=== PATIENT | female | born 1970 | race Caucasian/White ===

== ENCOUNTER → 2021-08-04 | Outpatient (CLI) | payer OTHER | LOC: RAD 14:00 | PROVIDERS: ATTEND Family Medicine | DX: Z12.31 Encounter for screening mammogram for malignant neoplasm of breast (principal) | CPT/HCPCS: 77063; 77067 ==

== ENCOUNTER 2021-10-11 09:53 | Outpatient (CLI) | payer OTHER ==
[~2021-10-11] VITALS: Ht 162.6 cm; Wt 106.6 kg
[2021-10-11] MEDS ORDERED: MV-M1TAB57 PO (10:52)
== END 2021-10-11 10:56 | disposition home or self-care (01) ==
LOC: PREOP 09:53
PROVIDERS: ATTEND Surgery
DX: Z01.818 Encounter for other preprocedural examination (principal)

== ENCOUNTER 2021-10-12 10:38 | Day surgery (SDC) | payer OTHER ==
[~2021-10-12] VITALS: Ht 162 cm; Wt 106.6 kg
[~2021-10-12 10:38] MED LIST: MV-M1TAB57 PO
[2021-10-12] MEDS ORDERED: LACTATED RINGERS 1,000 ML IV STA (10:39)
[2021-10-12] MEDS ORDERED: LIDOCAINE JELLY 2% 6 ML SYRINGE MM PRN (10:45)
[2021-10-12 11:00] VITALS: BP 128/73
--- NOTE | 2021-10-12 11:51 | Progress Note-Pre Operative ---
Pre-Operative Progress Note H&P Reviewed The H&P was reviewed, patient examined and no changes noted. Date Seen by Provider: Oct 12, 2021 Time Seen by Provider: 11:00 Date H&P Reviewed: Oct 12, 2021 Time H&P Reviewed: 11:00 Pre-Operative Diagnosis: screening NIR Granados MD Oct 12, 2021 11:51
--- NOTE | 2021-10-12 11:52 | Discharge Inst-Surgical ---
D/C Lap Instructions-TYRONE Follow Up Activity as tolerated High Fiber Diet 25g or more per day Avoid Alcohol, Caffeine, Spicy [place] and Acid foods. Drink 64 fluid oz or more of fluids per day. Symptoms to Report: Fever over 101 degree F, Nausea/Vomiting If any problems/questions: Contact your physician or go to Emergency Room NIR HANSEN MD Oct 12, 2021 11:52
[2021-10-12] MEDS ORDERED: ONDANSETRON 4 MG/2 ML (SDV) Z0FRAN IVP PRN (12:00)
[2021-10-12] MEDS ORDERED: ONDANSETRON 4 MG (ZOFRAN) ORAL DISSOLVE TAB PO PRN (12:00)
[2021-10-12] MEDS ORDERED: PROPOFOL INJECTION 50 ML IV ONE ×2 (13:02→13:26)
[2021-10-12] MEDS ORDERED: MIDAZOLAM 2 MG/2 ML (VERSED) VIAL ONE (13:02)
[2021-10-12 13:40] VITALS: BP 108/53
--- NOTE | 2021-10-12 13:43 | Progress Note-Post Operative ---
Post-Operative Progess Note Surgeon (s)/Mobile Web Application Developer (s) Surgeon NIR HANSEN MD Mobile Web Application Developer: none Pre-Operative Diagnosis screening colo Post-Operative Diagnosis mild chronic stage 2 ext and int hemorrhoids, mild sigmoid diverticulosis. Procedure & Operative Findings Date of Procedure 10/12/21 Procedure Performed/Findings colonoscopy Anesthesia Type mac Estimated Blood Loss Estimated blood loss (mL): minimal Specimens/Packing Specimens Removed none NIR HANSEN MD Oct 12, 2021 13:43
[2021-10-12 13:45] VITALS: BP 110/55
[2021-10-12 14:10] VITALS: BP 128/72
[2021-10-12 14:15] VITALS: BP 128/72
--- NOTE | 2021-10-12 15:07 | Anesthesia-General Post-Op ---
MAC Patient Condition Mental Status/LOC: Same as Preop Cardiovascular: Satisfactory Nausea/Vomiting: Absent Respiratory: Satisfactory Pain: Controlled Complications: Absent Post Op Complications Complications None Follow Up Care/Instructions Patient Instructions None needed. Anesthesiology Discharge Order Discharge Order Patient is doing well, no complaints, stable vital signs, no apparent adverse anesthesia problems. No complications reported per nursing. KAYLEEN OSEI CRNA Oct 12, 2021 15:07
--- NOTE | 2021-10-12 17:38 | OPERATIVE REPORT ---
DATE OF SERVICE: 10/12/2021 ATTENDING PRIMARY CARE PHYSICIAN: Dr. Leslie Barrow. PREOPERATIVE DIAGNOSIS: Screening colonoscopy with family history of colon cancer. POSTOPERATIVE DIAGNOSES: Mild chronic stage II external and internal hemorrhoids, mild sigmoid diverticulosis. PROCEDURE: Colonoscopy. SURGEON: Nir Hansen MD ANESTHESIA: Monitored anesthesia care. ESTIMATED BLOOD LOSS: Minimal. FINDINGS: Same as postoperative diagnoses. DISPOSITION: The patient tolerated the procedure well. INDICATIONS: The patient is a 51-year-old female in need of a screening colonoscopy. She states that she did have an approximately 10 years ago due to a remote family history with her grandmother being diagnosed with the disease at 40 years of age. She does not report any major issues with diarrhea nor constipation as well as no red blood per rectum nor any dark tarry stools. DESCRIPTION OF PROCEDURE: The patient was brought to the endoscopy suite, laid in the left lateral decubitus position. After adequate IV pain and sedative medications and monitored anesthesia care, a digital rectal examination was performed. Mild stage II external and internal hemorrhoids were identified, which were not actively edematous nor inflamed and no bleeding. Normal sphincter tone was felt and there were no palpable masses. The endoscope was then intubated and anus and rectum gently insufflated. The endoscope was then advanced through the valves of [place] of the rectum with no polyps or any neoplasms identified. We then proceeded through the sigmoid colon where mild sigmoid diverticulosis identified. The endoscope was then advanced through the remainder of the descending, transverse and ascending colon to the cecum, which were normal. There were no polyps or any neoplasms identified. The endoscope was then slowly withdrawn while taking a second look and suctioning of residual air with no additional findings. The patient tolerated the procedure well. We will recommend high fiber diet with incorporation of a fiber supplement, which should equal or exceed 25 grams daily as well as significant amounts of water to promote soft stools on a daily basis. She does not have any first-degree family history of colon cancer and no polyps identified, so if she is asymptomatic, she does not need another colonoscopy for another 10 years. Job ID: [id number] DocumentID: [id number] Dictated Date: 10/12/2021 13:40:55 Field Mechanic Date: 10/12/2021 17:37:04 Dictated By: NIR HANSEN MD
== END 2021-10-12 14:15 | disposition home or self-care (01) ==
LOC: ENDO 10:38
PROVIDERS: ATTEND Surgery
DX: Z12.11 Encounter for screening for malignant neoplasm of colon (principal); Z80.0 Family history of malignant neoplasm of digestive organs; K64.1 Second degree hemorrhoids; K57.30 Diverticulosis of large intestine without perforation or abscess without bleeding; E66.9 Obesity, unspecified; Z68.41 Body mass index [BMI] 40.0-44.9, adult